=== PATIENT | male | born 1990 | race Caucasian/White ===

== ENCOUNTER 2016-10-25 19:06 | Emergency (ER) | payer OTHER ==
[~2016-10-25] VITALS: Ht 185.4 cm; Wt 78.1 kg
[2016-10-25] MEDS ORDERED: CYCL-259 PO (19:33)
[2016-10-25 22:02] VITALS: BP 127/67
== END 2016-10-25 22:05 | disposition home or self-care (01) ==
LOC: ED 21:59
DX: N43.3 Hydrocele, unspecified (principal); N30.00 Acute cystitis without hematuria
CPT/HCPCS: 76870; 81001; 87077; 87086; 87186; 99285